=== PATIENT | female | born 1990 | race Caucasian/White ===

== ENCOUNTER 2016-10-23 16:56 | Emergency (ER) | payer MEDICAID ==
[~2016-10-23] VITALS: Ht 165.1 cm; Wt 77.1 kg
[2016-10-23 16:56] VITALS: BP 197/138; PULSE 138; RESP 19; TEMP 97.5; O2SAT 96
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
--- NOTE | 2016-10-23 17:00 | NUR ---
Dr Colmenares at bedside examining patient
--- NOTE | 2016-10-23 17:05 | NUR ---
Pt brought by self, A&O x4, pt crying at this time, c/o anxiety, skin pink and warm, cap refill <3, VSS, pt cooperative with staff,VSS.
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
[2016-10-23] MEDS ORDERED: LORazepam 2 MG/ML VIAL (FOR ER USE) IM ONE (17:15)
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
[2016-10-23 19:15] VITALS: BP 152/100; PULSE 92; RESP 19; TEMP 97.5; O2SAT 96
== END 2016-10-23 19:14 | disposition home or self-care (01) ==
LOC: SED 16:56
DX: F41.9 Anxiety disorder, unspecified (principal); R03.0 Elevated blood-pressure reading, without diagnosis of hypertension
CPT/HCPCS: 96372; 99283; J2060

== ENCOUNTER 2016-11-25 16:00 | Emergency (ER) | payer MEDICAID ==
[~2016-11-25] VITALS: Ht 160 cm; Wt 74.8 kg
[2016-11-25 16:13] VITALS: BP_SYST 172
[2016-11-25] MEDS ORDERED: LORazepam 2 MG/ML VIAL (FOR ER USE) IVP ONE ×2 (16:30→18:30)
[2016-11-25] MEDS ORDERED: NACL 0.9% 1,000 ML IV ONE ×3 (16:30→18:30)
[2016-11-25 16:55] LABS: BASOPHILS # (AUTO) 0.1 K/uL (0.0-0.2); BASOPHILS % (AUTO) 0.7 % (0.0-2.0); EOSINOPHILS # (AUTO) 0.1 K/uL (0.0-0.4); EOSINOPHILS % (AUTO) 0.3 % (0.0-4.0); HEMATOCRIT 43.3 % (36-48); HEMOGLOBIN 14.7 g/dL (12.0-16.0); LYMPHOCYTES # (AUTO) 3.1 K/uL (1.0-5.5); LYMPHOCYTES % (AUTO) 15.1 % (20.5-51.5); MEAN CORPUSCULAR HEMOGLOBIN 29 pg (27-31); MEAN CORPUSCULAR HGB CONC 34 % (32-36); MEAN CORPUSCULAR VOLUME 87 fL (79.0-98.0); MONOCYTES # (AUTO) 0.7 K/uL (0.0-1.0); MONOCYTES % (AUTO) 3.3 % (1.7-9.3); NEUTROPHILS # (AUTO) 16.5 K/uL (1.8-7.7); NEUTROPHILS % (AUTO) 80.6 % (40.0-70.0); PLATELET COUNT (AUTO) 452 K/uL (130-430); RED BLOOD CELL COUNT(AUTO) 5.01 MIL/uL (4.2-6.2); RED CELL DISTRIBUTION WIDTH 12.2 % (9.0-15.0); WHITE BLOOD COUNT (AUTO) 20.5 K/uL (4.8-10.8)
[2016-11-25 17:07] LABS: CALCIUM 9.2 mg/dL (8.4-11.0); CREATININE 1.01 mg/dL (0.55-1.30); POTASSIUM 3.3 mmol/L (3.5-5.1)
[2016-11-25 17:10] LABS: INR 1.1 (0.8-1.2); PROTHROMBIN TIME 12.1 SECS (9.5-12.5)
[2016-11-25 17:12] LABS: ALBUMIN 4.3 g/dL (3.4-4.8); TOTAL BILIRUBIN 0.6 mg/dL (0.0-1.0); TOTAL PROTEIN, SERUM 9.1 g/dL (6.4-8.3)
[2016-11-25 17:21] LABS: BLOOD, URINE 1+ (NEGATIVE); CLARITY/URINE SL CLOUDY (CLEAR); COLOR,URINE AMBER (YELLOW); GLUCOSE,URINE NEGATIVE (NEGATIVE); KETONES,URINE 2+ (NEGATIVE); LEUKOCYTE ESTERASE ,URINE 1+ (NEGATIVE); NITRITE, URINE NEGATIVE (NEGATIVE); PROTEIN URINE 2+ (NEGATIVE); UROBILINOGEN,URINE 0.2 (0.2-1.0)
[2016-11-25 17:40] LABS: BACTERIA,URINE MODERATE /HPF (None Seen); BILIRUBIN,URINE 1+ (NEGATIVE); RBC,URINE 0-3 /HPF (0-3); WBC,URINE 20-50 /HPF (0-3)
[2016-11-25 17:41] LABS: MUCUS,URINE 2+ /LPF (None Seen)
[2016-11-25] MEDS ORDERED: cefTRIAXone 1 GM IVPB PREMIX 50 ML IV ONE (18:00)
[2016-11-25 19:18] LABS: BARBITURATE, URINE NEGATIVE (NEG <=200); BENZODIAZEPINE, URINE NEGATIVE (NEG <=150); CANNABINOID, URINE POSITIVE (NEG <=50); COCAINE, URINE NEGATIVE (NEG <=150); METHAMPHETAMINES SCREEN,URINE POSITIVE (NEG <=500); OPIATE, URINE NEGATIVE (NEG <=100); PHENCYCLIDINE SCREEN,URINE NEGATIVE (NEG <=25); UR TRICYCLIC ANTIDEPRESSANTS NEGATIVE (NEG <=300); URINE AMPHETAMINE POSITIVE (NEG <=500); URINE METHADONE NEGATIVE (NEG <=200); URINE OXYCODONE SCREEN NEGATIVE (NEG <=100); URINE PROPOXYPHENE SCREEN NEGATIVE (NEG <=300)
[2016-11-25 20:40] VITALS: BP_SYST 126
== END 2016-11-25 20:40 | disposition home or self-care (01) ==
LOC: SED 16:00
DX: F41.0 Panic disorder [episodic paroxysmal anxiety] (principal); R06.4 Hyperventilation; F15.10 Other stimulant abuse, uncomplicated
CPT/HCPCS: 36415; 71010; 80053; 80061; 80307; 81000; 83880; 84484; 85025; 85610; 85730; 87086; 93005; 96361; 96365; 96375; 99285; G0482; J0696; J2060; J7030